=== PATIENT | male | born 1995 | race Caucasian/White ===

== ENCOUNTER 2022-07-25 06:17 | Emergency (ER) | payer MEDICAID, SELFPAY ==
--- NOTE | ~2022-07-25 | CT_ITS ---
EXAMINATION: CT brain wo con INDICATION: Headache COMPARISON: None TECHNIQUE: Standard unenhanced head CT. The dose-length product (DLP) was 605.33 mGy-cm. The mA was a djusted according to patient size. Iterative reconstruction technique was employed. FINDINGS: There is no intracranial hemorrhage, acute infarction, or abnormal mass lesion. There is a subtle 4 mm hyperattenuating area in the becerra radiata on the left (image 36). The ventricles are no rmal. There is no abnormal mass effect or midline shift. The lee-white matter differentiation is nor mal. The basal cisterns are patent. The orbits are normal. The paranasal sinuses, mastoids and calvar ium are normal. IMPRESSION: 1. No acute intracranial abnormality. 2. Subtle hyperattenuating area in the left becerra radiata of unclear etiology or significance. Findi ng may be incidental however small neoplasm or vascular lesion is a consideration. Follow-up with non emergent MRI without and with contrast is recommended. Reviewed, dictated and finalized at location A. IMPRESSION: 1. No acute intracranial abnormality. 2. Subtle hyperattenuating area in the left becerra radiata of unclear etiology or significance. Finding may be incidental however small neoplasm or vascular l esion is a consideration. Follow-up with nonemergent MRI without and with contr ast is recommended.
[2022-07-25 06:23] VITALS: BP 148/91; PULSE 113; RESP 18; TEMP 36.5; O2SAT 100
[2022-07-25 06:36] VITALS: PULSE 99; RESP 18; O2SAT 100
--- NOTE | 2022-07-25 07:15 | ED.GENADULT ---
HPI - General Adult General Chief complaint: Unspecified Stated complaint: right sided numbness, headache Time Seen by Provider: 07/25/22 07:14 Source: patient Mode of arrival: ambulatory Limitations: no limitations History of Present Illness HPI narrative: 27 years old white male drove himself to the hospital because of bitemporal pressure type headache started at 4:30 in the morning after getting up from bed to go to the bathroom. Subsequently patient developed numbness of the right face and right upper extremity lasted for 10 minutes the headache was 6 out of 10, received ibuprofen 400 mg once, the headache decreased to 3 out of 10 until now. The numbness came back again and lasted for about 10 minutes then resolved. He reports trouble to understanding written words this morning ,does not know how long it lasted, HE reports intermittent dizziness for the last few days/weeks when he lays down flat. He denies any fever, chills, nausea, vomiting, vision change, smoking or using drugs. Or drinking alcohol. He reports a lot of stress lately. Currently his main complaint is headache which is 3 out of 6 he denies any aggravating or relieving factors. Related Data Allergies Allergy/AdvReac Type Severity Reaction Status Date / Time No Known Allergies Allergy Verified 07/25/22 06:37 Review of Systems Review of Systems: All systems reviewed & are unremarkable except as noted in HPI and below Exam Narrative: General appearance: Well-developed, well-nourished Skin: Normal color Head: Normocephalic, nontraumatic Eyes: Clear conjunctiva ENT: Oropharynx normal, ears normal, nose normal Neck: Supple, nontender Chest and respiratory: Airway patent, no respiratory distress, no accessory muscle use Heart: Regular rate/rhythm Abdomen: Soft, nontender, no organomegaly, quiet bowel sounds Vascular: Normal peripheral pulses, normal capillary refill. Musculoskeletal: Normal range of motion, nontender back Neurologic: Alert and oriented ?3, FREEZER ASSISTANT is normal as tested, no gross motor deficit Course Reevaluation(s) Reevaluation #1: Patient declined to stay, does not have insurance, and would like to follow-up with a neurologist as outpatient I declare that I have personally explained to the patient the risks and consequences involved in leaving this facility at this time. the benefits of continued treatment and/or hospitalization. And the alternatives. If any. to continued treatment and/or hospitalization. if applicable.I have not identified any psychosis, drugs, mental illness, or medical illness that alters decision-making capacity (reasoning abilities ). Date: 07/25/22 Time: 09:07 Consultations Consultation #1: DR BENNETT Date: 07/25/22 Time: 08:21 Vital Signs Vital signs: Vital Signs Temperature 36.5 C 07/25/22 06:23 Pulse Rate 113 H 07/25/22 06:23 Respiratory Rate 18 07/25/22 06:23 Blood Pressure 148/91 H 07/25/22 06:23 Pulse Oximetry 100 07/25/22 06:23 Oxygen Delivery Room Air 07/25/22 06:23 Temperature 36.5 C 07/25/22 06:23 Pulse Rate 99 07/25/22 06:36 Respiratory Rate 18 07/25/22 06:36 Blood Pressure 148/91 H 07/25/22 06:23 Pulse Oximetry 100 07/25/22 06:36 Oxygen Delivery Room Air 07/25/22 06:23 Medical Decision Making MDM Narrative Medical decision making narrative: Patient presents with bitemporal headache, differential diagnosis includes stress related symptoms, intracranial abnormalities. Physical examination showed no significant abnormalities. CT head showed abnormalities requires MRI of the brain with and without. Patient will be admitted to the hospitalist, neuro consult ordered. Differential Diag
[2022-07-25 08:50] VITALS: BP 116/74; PULSE 77; RESP 15; O2SAT 100
--- NOTE | 2022-07-25 08:50 | PC.NURSE ---
When patient was informed of admission and IV/lab work, pt expressed concerns of cost. Pt informed RN that he does not have any insurance and was asking if there were other options for treatment. MD Solitario came to bedside to discuss options and encouraged pt to stay for admission to get care and imaging promptly. Pt continues to have concerns for cost and wishes to follow-up outpatient if possible. Pt wanting to leave AMA for this reason. Pt was provided neurology follow-up information prior to leaving.
== END 2022-07-25 09:39 | disposition left against medical advice (07) ==
PROVIDERS: Emergency Provider Emergency Medicine
DX: R51.9 Headache, unspecified (principal)
CPT/HCPCS: 70450; 99284

== ENCOUNTER 2024-07-18 08:20 | Emergency (ER) | payer BC, SELFPAY ==
[2024-07-18 08:35] VITALS: BP 121/79; PULSE 63; RESP 18; TEMP 36.1; O2SAT 98
--- NOTE | 2024-07-18 08:43 | ED_ITS ---
HPI - URI/Sore Throat General Chief Complaint: Upper Respiratory Infection Stated Complaint: cold symptoms Time Seen by Provider: 07/18/24 08:43 Source: patient Mode of arrival: ambulatory Limitations: no limitations History of Present Illness HPI Narrative: 29-year-old male presents with complaint nasal congestion, postnasal drainage, sore throat, cough for 2 days. Afebrile. Reports body aches, fatigue. Taking [id number] Mucinex DM with little relief of symptoms. Denies nausea vomiting diarrhea. Requesting work note. No chest pain or shortness of breath. All systems reviewed and negative except as noted above. Related Data Allergies Allergy/AdvReac Type Severity Reaction Status Date / Time No Known Allergies Allergy Verified 07/18/24 08:33 Review of Systems Review of Systems: CONSTITUTIONAL: Denies fever, chills, or sweats. EYES: Denies visual changes, redness, or discharge. ENT: Reports rhinorrhea, congestion, postnasal drainage, sore throat. Denies otalgia. CARDIOVASCULAR: Denies chest pain, palpitations, or edema. RESPIRATORY: reports cough . Denies dyspnea. GASTROINTESTINAL: Denies abdominal pain, nausea, vomiting, or diarrhea. GENITOURINARY: Denies dysuria or hematuria. SKIN: Denies rash or itching. MUSCULOSKELETAL: Denies back pain, joint pain, or myalgia. NEUROLOGIC: Denies headache, numbness, or weakness. PSYCHIATRIC: Denies anxiety or depression. All other systems reviewed are negative, except as documented in HPI. PMFSH Comments At time of signature, agree with nursing past medical, surgical, social and family history. There is no relevant family history pertinent to the presenting complaint. Exam Narrative: GENERAL: This is a well-nourished, well-developed patient, in no apparent distress. HEAD: normocephalic, atraumatic. EYES: PERRL. Sclera clear/white. Vision is grossly intact. EARS: External ears normal, auditory canals clear and without drainage, TMs normal without perforation. Hearing grossly intact. NOSE: External nose normal with congestion, purulent nasal drainage, erythema to nares THROAT: Mucous membranes moist, postnasal drainage with mild erythema. No swelling or exudates. NECK: Neck supple, non-tender without lymphadenopathy, masses or thyromegaly. CARDIOVASCULAR: Regular rate and rhythm without murmurs, gallops, or rubs. RESPIRATORY: Clear to auscultation. Breath sounds equal bilaterally. No wheezes, rales, or rhonchi. SKIN: warm, Dry, intact with no suspicious lesions or rash, good texture and turgor. NEURO: awake, alert, and oriented to person, place and time. There were no obvious focal neurologic abnormalities. EXTREMITIES: No joint tenderness, effusion, or edema noted. Course Course Level of Care: Express Care Visit Vital Signs Vital signs: Vital Signs Temperature 36.1 C L 07/18/24 08:35 Pulse Rate 63 07/18/24 08:35 Respiratory Rate 18 07/18/24 08:35 Blood Pressure 121/79 07/18/24 08:35 Pulse Oximetry 98 07/18/24 08:35 Oxygen Delivery Room Air 07/18/24 08:35 Temperature 36.1 C L 07/18/24 08:35 Pulse Rate 63 07/18/24 08:35 Respiratory Rate 18 07/18/24 08:35 Blood Pressure 121/79 07/18/24 08:35 Pulse Oximetry 98 07/18/24 08:35 Oxygen Delivery Room Air 07/18/24 08:35 Reviewed MDM - URI/Sore Throat MDM Narrative Medical decision making narrative: negative COVID and influenza test. Patient is well-appearing, nontoxic. Lungs clear to auscultation. Will treat for viral sinusitis. Please be advised this is a medical document. It is intended for [id number] communication. It is written in medical language and may contain unfamiliar abbreviations or verbiage. Medical documents are intended to carry relevant information, facts as evident, and the clinical opinion of the practitioner at the time of the encounter. This report may have been done utilizing a voice recognition system. Attempts have been made to correct errors. However, there may be uncorrected grammatical, spelling, and recognition errors present. The file time of this note does not necessarily represent the time of service. Differential Diagnosis Differential diagnosis: Likely upper respiratory infection, sinusitis, viral infection and influenza Discharge Plan Discharge Clinical Impression: Acute viral sinusitis Patient Disposition: Home, Self-Care Condition: Stable Instructions: Sinusitis (ED) Additional Instructions: your COVID and influenza test was negative today. Your symptoms are viral and may last 10-14 days. Take medications as prescribed. Purchase [id number] Claritin D and take as directed on packaging. This medication is found behind the pharmacy counter. Drink at least 64 oz water a day. See your doctor symptoms are not improving. Patient Language: Tamaz[place] Prescriptions: New benzonatate 200 mg capsule 200 mg PO TID PRN (Reason: cough) Qty: 20 0RF methylprednisolone [Medrol (Tru)] 4 mg tablets,dose pack See Rx Instructions PO .COMPLEX Qty: 21 0RF Rx Instructions: orally per package directions fluticasone propionate [Flonase Allergy Relief] 50 mcg/actuation spray,suspension 1 spray intranasal BID Qty: 16 0RF Rx Instructions: administer into each nostril Follow-up/Referrals: PHYSICIAN,BROKER ASSISTANT [Primary Care Provider] - Stand Alone Forms: Work/School Release IP Time of Disposition: 08:52
[2024-07-18 08:52] LABS: EDCOVIDSCREEN Negative (Negative); EDINFLUASCREEN Negative (Negative); EDINFLUBSCREEN Negative (Negative)
== END 2024-07-18 08:54 | disposition home or self-care (01) ==
PROVIDERS: Emergency Provider Nurse Practitioner Family; Referring Provider Emergency Medicine
DX: J01.90 Acute sinusitis, unspecified (principal); Z20.822 Contact with and (suspected) exposure to COVID-19
CPT/HCPCS: 87426; 87804; 99213; G0463

== ENCOUNTER 2024-08-21 15:35 | Emergency (ER) | payer BC, SELFPAY ==
[2024-08-21 15:40] VITALS: BP 121/83; PULSE 72; RESP 18; TEMP 36.2; O2SAT 100
[2024-08-21] MEDS: TETANUS,DIPHTHERIA,AC PERTUSSIS ADULT (0.5 ML) BOOSTRIX IM (15:59)
--- NOTE | 2024-08-21 16:22 | ED_ITS ---
HPI - Skin/Abscess/Foreign Bdy General Chief complaint: Skin/Abscess/Foreign Body Stated complaint: Cut on LT Thumb Time Seen by Provider: 08/21/24 15:50 Source: patient and RN notes reviewed Mode of arrival: ambulatory Limitations: no limitations History of Present Illness HPI narrative: 29-year-old male presents Express Care complaining of the left thumb wound. Patient states 1 week ago he ripped off a hang nail to his left thumb. Since then he has noticed some redness and swelling around his left thumb says that a piece of the skin appears to be growing over his nail. Patient states that is tender to touch. Patient has been putting antibiotic ointment on the area and covering it with a Band-Aid. Patient denies any fevers, discharge, body aches, chills. Patient's tetanus is not up-to-date. Related Data Allergies Allergy/AdvReac Type Severity Reaction Status Date / Time No Known Allergies Allergy Verified 08/21/24 15:49 Review of Systems Review of Systems: CONSTITUTIONAL: Denies fever, chills, or sweats. EYES: Denies visual changes, redness, or discharge. ENT: Denies rhinorrhea, congestion, sore throat, or otalgia. CARDIOVASCULAR: Denies chest pain, palpitations, or edema. RESPIRATORY: Denies cough or dyspnea. GASTROINTESTINAL: Denies abdominal pain, nausea, vomiting, or diarrhea. GENITOURINARY: Denies dysuria or hematuria. SKIN: Denies rash or itching. Positive for left thumb wound and redness. MUSCULOSKELETAL: Denies back pain, joint pain, or myalgia. NEUROLOGIC: Denies headache, numbness, or weakness. PSYCHIATRIC: Denies anxiety or depression. All other systems reviewed are negative, except as documented in HPI. PMFSH Comments At the time of my signature, I reviewed and agree with the nursing past medical, surgical, social, and family history. There is no relevant family history pertinent to the patient complaint. Exam Narrative: GENERAL: This is a well-nourished, well-developed adult, in no apparent distress. They are non ill-appearing, nontoxic appearing. HEAD: normocephalic, atraumatic. EYES: Sclera clear/white. Vision is grossly intact. EARS: External ears normal, Hearing grossly intact. NOSE: External nose normal THROAT: Mucous membranes moist, NECK: normal range of motion CARDIOVASCULAR: Regular rate and rhythm. RESPIRATORY: Respiratory rate normal, respiratory effort nonlabored, no respiratory distress SKIN: Left thumb: Skin flap over the lateral side of the nail fold. Skin is mobile attached to the surrounding skin of the thumb. Appears to be healing tissue. New but is intact. There is slight bloody discharge at the distal corner of the lateral nail fold. Wound is healing under the skin flap. Mild erythema and swelling to the lateral and proximal part of the left thumb near the nail bed. No swelling under the nail bed. No area of fluctuance or induration. No discharge. Normal range of motion left thumb. Capillary refill less than 2 seconds. Neurovascular status intact distally injury. NEURO: awake, alert, and oriented to person, place and time. There were no obvious focal neurologic abnormalities. EXTREMITIES: No joint tenderness, effusion, or edema noted. Course Course Emergency Course: Patient is aware of diagnosis, understands and agrees to treatment plan. Anticipatory guidance given. Patient agrees to follow-up as directed and is aware of reasons to seek care at the emergency department. Portions of this record may have been created with voice recognition software Level of Care: Express Care Visit Vital Signs Vital signs: Vital Signs Temperature 97.2 F L 08/21/24 15:40 Pulse Rate 72 08/21/24 15:40 Respiratory Rate 18 08/21/24 15:40 Blood Pressure 121/83 08/21/24 15:40 Pulse Oximetry 100 08/21/24 15:40 Oxygen Delivery Room Air 08/21/24 15:40 Temperature 97.2 F L 08/21/24 15:40 Pulse Rate 72 08/21/24 15:40 Respiratory Rate 18 08/21/24 15:40 Blood Pressure 121/83 08/21/24 15:40 Pulse Oximetry 100 08/21/24 15:40 Oxygen Delivery Room Air 08/21/24 15:40 Reviewed MDM - Skin/Abscess/Foreign Bdy MDM Narrative Medical decision making narrative: Mild swelling near the nail bed of the left thumb. Likely a small paronychia without abscess formation. Will treat empirically with the muporicin cream and cephalexin given that the symptoms have been going on for 7 days. Patient's tetanus was also updated today. Discussed physical exam findings. Advised supportive measures and signs/symptoms to go to the ER. Pt is appropriate for outpt treatment and f/u. Differential Diagnosis Differential diagnosis: Likely other (Paronychia, abscess, cellulitis) Critical Care Time Critical Care Time Critical Care Time: No Discharge Plan Discharge Clinical Impression: Open wound of thumb Patient Disposition: Home Condition: Stable Instructions: Antibiotic Form, Paronychia (ED) Additional Instructions: Take antibiotics as directed. Apply antibiotic ointment as directed to the affected area 3 times a day. Your tetanus was updated today. Please follow-up with your primary doctor in 1 week. Wash the wound daily with mild soap and water. Keep the wound covered. Avoid baths, lakes, swimming, hot tubs, or any dirty water to prevent contamination of the wound. Go to the ER for worsening swelling, redness, fevers, or any other concerns. Patient Language: Ghanaian Prescriptions: New cephalexin 500 mg capsule 500 mg PO Q6H 7 Days Qty: 28 0RF mupirocin calcium 2 % cream 1 applic topical TID 7 Days Qty: 15 0RF No Action fluticasone propionate [Flonase Allergy Relief] 50 mcg/actuation spra y,suspension 1 spray intranasal BID Qty: 16 0RF Rx Instructions: administer into each nostril Follow-up/Referrals: PHYSICIAN,FACILITIES OPERATIONS TECHNICIAN [Primary Care Provider] - Time of Disposition: 15:59
== END 2024-08-21 16:04 | disposition home or self-care (01) ==
DX: S61.002A Unspecified open wound of left thumb without damage to nail, initial encounter (principal); X58.XXXA Exposure to other specified factors, initial encounter; Z23 Encounter for immunization; Z86.16 Personal history of COVID-19
CPT/HCPCS: 90471; 90715; 99213; G0463